=== PATIENT | female | born 1980 | race Caucasian/White ===

== ENCOUNTER 2021-02-22 11:17 | Emergency (ER) | payer OTHER, SELFPAY ==
[2021-02-22 11:32] VITALS: BP 156/79; PULSE 70; RESP 18; TEMP 36.3; O2SAT 100; BMI 36.3
--- NOTE | 2021-02-22 11:42 | XR_ITS ---
WS: [id number] Exam: XR KUB portable [id number] Date/Time of Exam: 02/22/2021 11:48 AM Reason For Exam: acute onset pain lower abd No bowel obstruction or free air. There are numerous opaque densities identified in the right and lef t upper abdomen that may be within the GI tract. This could be ingested medication or foreign materia l. Signs of prior cholecystectomy. No sign of organ enlargement. Regional bony elements appear normal . XR/XR KUB portable [id number] IMPRESSION: 1. No acute abdominal process identified. 2. Numerous opaque densities seen in the upper right and left abdomen that may be in the colon. This may represent ingested medication or foreign material.
--- NOTE | 2021-02-22 11:56 | W.ED.ABDPA2 ---
Documented by User: JEAN PAUL Kelly 02/22/21 15:01 HPI - Abdominal Pain General: Chief Complaint: Abdominal Pain Stated Complaint: abdomen pain Time Seen by Provider: 02/22/21 16:33 History of Present Illness: HPI narrative: Patient states that she has had acute onset abdominal pain that started this morning after going to the bathroom. Now pain is colicky. But down in her lower abdomen and denies any acute distress or significant health problems. FORMERLY [facility] ED PFSH: Surgical History (Updated 02/22/21 @ 17:24 by Srikanth Sneed DO) S/P appendectomy S/P cholecystectomy Social History (Updated 02/22/21 @ 17:24 by Srikanth Sneed DO) Alcohol intake: never Course Vital Signs: Vital signs: Vital Signs Temperature 97.4 F L 02/22/21 11:32 Pulse Rate 90 02/22/21 19:56 Respiratory Rate 18 02/22/21 19:56 Blood Pressure 131/97 02/22/21 19:56 Pulse Oximetry 97 02/22/21 19:56 MDM - Abdominal Pain MDM Narrative: Medical decision making narrative: Brief history and physical exam was performed as part of the triage process. Due to current ED wait time patient will be placed in waiting room until a room becomes available. Explained to patient he/she will be seen in order of severity. Patient is currently safe to wait in the waiting room until we can get them placed. Patient informed that if condition worsens at any time to please let the front end developer javascript html css know. Recheck patient at 1300. Patient no acute distress recheck patient 1400. Patient no acute distress has pain across abdomen. Recheck patient 1500 patient still with abdominal pain waiting for CT to be performed Lab Data: Labs: Lab Results 02/22/21 02/22/21 02/22/21 13:15 13:15 13:15 WBC 8.9 10^3/uL 10^3/ uL (4.0-10.0) RBC 4.76 10^6/uL 10^6 /uL (4.1-5.3) Hgb 13.9 g/dL g/dL (11.5-15.3) Hct 42.5 % % (37.0-47.0) MCV 89.3 fl fl (81-99) MCH 29.2 pg pg (28.0-34.0) MCHC 32.7 g/dL g/dL (30.0-36.0) RDW 12.5 % % (12.1-15.1) Plt Count 343 10^3/cmm 10^3 /cmm (130-400) MPV 9.3 fL fL (7.4-10.4) Neut % (Auto) 74.0 % % Lymph % (Auto) 15.7 % % [place] % (Auto) 8.3 % % Eos % (Auto) 1.0 % % Baso % (Auto) 0.5 % % Neut # (Auto) 6.58 10^3/uL 10^3 /uL (1.8-7.7) Lymph # (Auto) 1.4 10^3/uL 10^3/ uL (0.8-4.8) [place] # (Auto) 0.7 10^3/uL 10^3/ uL (0.2-0.9) Eos # (Auto) 0.1 10^3/uL 10^3/ uL (0.0-0.8) Baso # (Auto) 0.0 10^3/uL 10^3/ uL (0.0-0.1) Nucleated RBC % (a uto) 0 % % Nucleated RBCs # 0.0 /100WBC /100W BC Sodium 137 mmol/L mmol/L (136-145) Potassium 4.0 mmol/L mmol/L (3.5-5.1) Chloride 104 mmol/L mmol/L (98-107) Carbon Dioxide 18 mmol/L L mmol/ L (22-29) Anion Gap 19.0 (5-19) BUN 11 mg/dL mg/dL (6-20) Creatinine 0.9 mg/dL mg/dL (0.5-0.9) GFR Calculation 68.7 mL/min L mL/ min (90-130) Glucose 84 mg/dL mg/dL (65-115) Calculated Osmolal ity 283 mOsm/kg L mOs m/kg (285-295) Calcium 8.8 mg/dL mg/dL (8.5-10.5) Total Bilirubin 0.6 mg/dL mg/dL (0.15-1.2) AST 22 U/L U/L (0-32) ALT 19 U/L U/L (0-33) Alkaline Phosphata se 88 IU/L IU/L (35-105) Creatine Kinase 86 U/L U/L (26-192) Total Protein 7.5 g/dL g/dL (6.6-8.7) Albumin 4.5 g/dL g/dL (3.5-5.2) Globulin 3.0 g/dL g/dL (1.3-4.6) Lipase 84 U/L H U/L (13-60) Urine Color Urine Appearance Urine pH Ur Specific Gravit y Urine Protein Urine Glucose (UA) Urine Ketones Urine Blood Urine Nitrate Urine Bilirubin Urine Urobilinogen Ur Leukocyte Tiffanie ase Urine RBC Urine WBC Ur Squamous Epith Cells Amorphous Sediment Urine Bacteria 02/22/21 17:15 WBC RBC Hgb Hct MCV MCH MCHC RDW Plt Count MPV Neut % (Auto) Lymph % (Auto) [place] % (Auto) Eos % (Auto) Baso % (Auto) Neut # (Auto) Lymph # (Auto) [place] # (Auto) Eos # (Auto) Baso # (Auto) Nucleated RBC % (a uto) Nucleated RBCs # Sodium Potassium Chloride Carbon Dioxide Anion Gap BUN Creatinine GFR Calculation Glucose Calculated Osmolal ity Calcium Total Bilirubin AST ALT Alkaline Phosphata se Creatine Kinase Total Protein Albumin Globulin Lipase Urine Color Yellow (Yellow) Urine Appearance Clear (CLEAR) Urine pH 5 (5-7) Ur Specific Gravit y 1.020 (1.005-1.030) Urine Protein Neg (Negative) Urine Glucose (UA) Norm (Normal) Urine Ketones Negative (Negative) Urine Blood Neg (Negative) Urine Nitrate Positive H (Negative) Urine Bilirubin Neg (Negative) Urine Urobilinogen Norm mg/dL mg/dL (Negative) Ur Leukocyte Tiffanie ase Negative (Negative) Urine RBC 0-4 /hpf H /hpf (0-2) Urine WBC 5-10 /hpf H /hpf (0-5) Ur Squamous Epith Cells 0-4 /hpf H /hpf (0-5) Amorphous Sediment Not Reportable Urine Bacteria 4+ /hpf H /hpf (NONE) Discharge Plan Discharge Patient Disposition: Home Clinical Impression: Acute cystitis, Adnexal cyst Condition: Stable Prescriptions: New hydrocodone-acetaminophen 5-325 mg tablet 1 tab PO Q6H PRN (Reason: pain) Qty: 14 RF: 0 cephalexin 500 mg capsule 500 mg PO TID 7 Days Qty: 21 RF: 0 Discharge Orders: Discharge ED (Routine); Ordered 02/22/21 Ordered By: Mirian Davidson Referrals: Hernán Bah DO [Primary Care Provider] - Discharge Diet: Advance as tolerated Discharge Activity: Resume usual activity Patient Instructions: Ovarian Cyst (ED), Urinary Tract Infection in Women (DC), Opioid Safety Coding Level of Care Code ED Label Fuser Tender for Chg Fwd Exam Comprehensive Documented by User: Srikanth Sneed DO 02/23/21 05:36 HPI - Abdominal Pain General: Chief Complaint: Abdominal Pain Stated Complaint: abdomen pain Time Seen by Provider: 02/22/21 16:33 History of Present Illness: HPI narrative: 40-year-old female presents emergency room complaining of lower abdominal pain. She states this morning she got up to go to the bathroom she was trying to have a bowel movement, doubled over laying down to her knees and felt sudden pain felt like something what she describes as flipping in her stomach she got nauseous. She sat upright it seemed to improve persisted throughout the day. She still has a tender abdomen refers all the pain in the lower quadrants. She denies any vomiting or diarrhea. She denies any medic easy melena hematemesis or coffee-ground emesis. She denies any dysuria urgency or frequency. She has previously had a cholecystectomy and appendectomy. MD elicited complaint: abdominal pain Pertinent past history: none Onset (ago): hour(s) Pain Consistency: constant Location: None Severity: moderate Associated Symptoms: Denies bloating, chills, coffee ground emesis, constipation, diarrhea, dysuria, fever(s), hematochezia, hematemesis, melena, nausea and vomiting Review of Systems Const: Denies: fever(s), chills, body aches, change in appetite, fatigue or malaise ENMT: Denies: throat pain, ear or mastoid pain, nasal discharge or nasal congestion Card: Denies: chest pain, edema, dyspnea on exertion or orthopnea Resp: Denies: dyspnea, productive cough or non-productive cough GI: Denies: abdominal pain, nausea, vomiting, hematemesis, coffee ground emesis, diarrhea, constipation, bloating, hematochezia or melena : Denies: flank pain, difficulty voiding, dysuria, urinary frequency or urinary urgency Skin/Breast: Denies: rash or pruritus PFSH ED PFSH: Surgical History (Updated 02/22/21 @ 17:24 by Srikanth Sneed DO) S/P appendectomy S/P cholecystectomy Social History (Updated 02/22/21 @ 17:24 by Srikanth Sneed DO) Alcohol intake: never Physical Exam Const: COMMON NORMALS: no acute distress GENERAL APPEARANCE: cooperative and comfortable ORIENTATION/CONSCIOUSNESS: Yes awake, Yes oriented to person, Yes oriented to place and Yes oriented to time HENMT: COMMON NORMALS: normocephalic, atraumatic and hearing grossly normal bilaterally HEAD & SCALP: normocephalic and atraumatic Neck/C-Spine: COMMON NORMALS: no JVD Resp: COMMON NORMALS: normal respiratory effort, No retractions, No use of accessory muscles and clear to auscultation bilaterally AUSCULTATION: clear to auscultation bilaterally Cardio: COMMON NORMALS: no JVD, regular rate, regular rhythm and No murmurs present (Cardio) RATE: regular rate RHYTHM: regular rhythm GI: COMMON NORMALS: No hepatosplenomegaly present AUSCULTATION: Yes normoactive bowel sounds PALPATION: Yes Tenderness to palpation present (GI) (Suprapubic tenderness), No Guarding due to palpation present (GI) and Yes No hepatosplenomegaly present Extremity: COMMON NORMALS: normal to inspection, capillary refill normal, no clubbing, cyanosis or edema, no calf tenderness and no pedal edema Neuro: SENSORIUM/ORIENTATION: Yes oriented to person, Yes oriented to place and Yes oriented to time Skin: COMMON NORMALS: no rashes or lesions noted GENERAL SKIN EXAM: no rashes or lesions noted Course Vital Signs: Vital signs: Vital Signs Temperature 97.4 F L 02/22/21 11:32 Pulse Rate 90 02/22/21 19:56 Respiratory Rate 18 02/22/21 19:56 Blood Pressure 131/97 02/22/21 19:56 Pulse Oximetry 97 02/22/21 19:56 MDM - Abdominal Pain MDM Narrative: Medical decision making narrative: Care turned over to Dr. Davidson at change shift see his notes for final diagnosis and disposition Lab Data: Labs: Lab Results 02/22/21 02/22/21 02/22/21 13:15 13:15 13:15 WBC 8.9 10^3/uL 10^3/ uL (4.0-10.0) RBC 4.76 10^6/uL 10^6 /uL (4.1-5.3) Hgb 13.9 g/dL g/dL (11.5-15.3) Hct 42.5 % % (37.0-47.0) MCV 89.3 fl fl (81-99) MCH 29.2 pg pg (28.0-34.0) MCHC 32.7 g/dL g/dL (30.0-36.0) RDW 12.5 % % (12.1-15.1) Plt Count 343 10^3/cmm 10^3 /cmm (130-400) MPV 9.3 fL fL (7.4-10.4) Neut % (Auto) 74.0 % % Lymph % (Auto) 15.7 % % [place] % (Auto) 8.3 % % Eos % (Auto) 1.0 % % Baso % (Auto) 0.5 % % Neut # (Auto) 6.58 10^3/uL 10^3 /uL (1.8-7.7) Lymph # (Auto) 1.4 10^3/uL 10^3/ uL (0.8-4.8) [place] # (Auto) 0.7 10^3/uL 10^3/ uL (0.2-0.9) Eos # (Auto) 0.1 10^3/uL 10^3/ uL (0.0-0.8) Baso # (Auto) 0.0 10^3/uL 10^3/ uL (0.0-0.1) Nucleated RBC % (a uto) 0 % % Nucleated RBCs # 0.0 /100WBC /100W BC Sodium 137 mmol/L mmol/L (136-145) Potassium 4.0 mmol/L mmol/L (3.5-5.1) Chloride 104 mmol/L mmol/L (98-107) Carbon Dioxide 18 mmol/L L mmol/ L (22-29) Anion Gap 19.0 (5-19) BUN 11 mg/dL mg/dL (6-20) Creatinine 0.9 mg/dL mg/dL (0.5-0.9) GFR Calculation 68.7 mL/min L mL/ min (90-130) Glucose 84 mg/dL mg/dL (65-115) Calculated Osmolal ity 283 mOsm/kg L mOs m/kg (285-295) Calcium 8.8 mg/dL mg/dL (8.5-10.5) Total Bilirubin 0.6 mg/dL mg/dL (0.15-1.2) AST 22 U/L U/L (0-32) ALT 19 U/L U/L (0-33) Alkaline Phosphata se 88 IU/L IU/L (35-105) Creatine Kinase 86 U/L U/L (26-192) Total Protein 7.5 g/dL g/dL (6.6-8.7) Albumin 4.5 g/dL g/dL (3.5-5.2) Globulin 3.0 g/dL g/dL (1.3-4.6) Lipase 84 U/L H U/L (13-60) Urine Color Urine Appearance Urine pH Ur Specific Gravit y Urine Protein Urine Glucose (UA) Urine Ketones Urine Blood Urine Nitrate Urine Bilirubin Urine Urobilinogen Ur Leukocyte Tiffanie ase Urine RBC Urine WBC Ur Squamous Epith Cells Amorphous Sediment Urine Bacteria 02/22/21 17:15 WBC RBC Hgb Hct MCV MCH MCHC RDW Plt Count MPV Neut % (Auto) Lymph % (Auto) [place] % (Auto) Eos % (Auto) Baso % (Auto) Neut # (Auto) Lymph # (Auto) [place] # (Auto) Eos # (Auto) Baso # (Auto) Nucleated RBC % (a uto) Nucleated RBCs # Sodium Potassium Chloride Carbon Dioxide Anion Gap BUN Creatinine GFR Calculation Glucose Calculated Osmolal ity Calcium Total Bilirubin AST ALT Alkaline Phosphata se Creatine Kinase Total Protein Albumin Globulin Lipase Urine Color Yellow (Yellow) Urine Appearance Clear (CLEAR) Urine pH 5 (5-7) Ur Specific Gravit y 1.020 (1.005-1.030) Urine Protein Neg (Negative) Urine Glucose (UA) Norm (Normal) Urine Ketones Negative (Negative) Urine Blood Neg (Negative) Urine Nitrate Positive H (Negative) Urine Bilirubin Neg (Negative) Urine Urobilinogen Norm mg/dL mg/dL (Negative) Ur Leukocyte Tiffanie ase Negative (Negative) Urine RBC 0-4 /hpf H /hpf (0-2) Urine WBC 5-10 /hpf H /hpf (0-5) Ur Squamous Epith Cells 0-4 /hpf H /hpf (0-5) Amorphous Sediment Not Reportable Urine Bacteria 4+ /hpf H /hpf (NONE) Discharge Plan Discharge Patient Disposition: Home Clinical Impression: Acute cystitis, Adnexal cyst Condition: Stable Prescriptions: New hydrocodone-acetaminophen 5-325 mg tablet 1 tab PO Q6H PRN (Reason: pain) Qty: 14 RF: 0 cephalexin 500 mg capsule 500 mg PO TID 7 Days Qty: 21 RF: 0 Discharge Orders: Discharge ED (Routine); Ordered 02/22/21 Ordered By: Mirian Davidson Referrals: Hernán Bah DO [Primary Care Provider] - Discharge Diet: Advance as tolerated Discharge Activity: Resume usual activity Patient Instructions: Ovarian Cyst (ED), Urinary Tract Infection in Women (DC), Opioid Safety Coding Level of Care Code ED Label Fuser Tender for Chg Fwd Exam Comprehensive Documented by User: Mirian Davidson MD 02/22/21 19:56 HPI - Abdominal Pain General: Chief Complaint: Abdominal Pain Stated Complaint: abdomen pain Time Seen by Provider: 02/22/21 16:33 PFSH ED PFSH: Surgical History (Updated 02/22/21 @ 17:24 by Srikanth Sneed DO) S/P appendectomy S/P cholecystectomy Social History (Updated 02/22/21 @ 17:24 by Srikanth Sneed DO) Alcohol intake: never Course Vital Signs: Vital signs: Vital Signs Temperature 97.4 F L 02/22/21 11:32 Pulse Rate 90 02/22/21 19:56 Respiratory Rate 18 02/22/21 19:56 Blood Pressure 131/97 02/22/21 19:56 Pulse Oximetry 97 02/22/21 19:56 MDM - Abdominal Pain MDM Narrative: Medical decision making narrative: Patient presents here with abdominal pain she does have a cystic lesion in her right adnexa I discussed this with her we will get her follow-up with OB will need an outpatient ultrasound as well patient also has a urinary tract infection we will give her Keflex she has no signs of torsion. She is return if worsening she understands agrees to plan. Lab Data: Labs: Lab Results 02/22/21 02/22/21 02/22/21 13:15 13:15 13:15 WBC 8.9 10^3/uL 10^3/ uL (4.0-10.0) RBC 4.76 10^6/uL 10^6 /uL (4.1-5.3) Hgb 13.9 g/dL g/dL (11.5-15.3) Hct 42.5 % % (37.0-47.0) MCV 89.3 fl fl (81-99) MCH 29.2 pg pg (28.0-34.0) MCHC 32.7 g/dL g/dL (30.0-36.0) RDW 12.5 % % (12.1-15.1) Plt Count 343 10^3/cmm 10^3 /cmm (130-400) MPV 9.3 fL fL (7.4-10.4) Neut % (Auto) 74.0 % % Lymph % (Auto) 15.7 % % [place] % (Auto) 8.3 % % Eos % (Auto) 1.0 % % Baso % (Auto) 0.5 % % Neut # (Auto) 6.58 10^3/uL 10^3 /uL (1.8-7.7) Lymph # (Auto) 1.4 10^3/uL 10^3/ uL (0.8-4.8) [place] # (Auto) 0.7 10^3/uL 10^3/ uL (0.2-0.9) Eos # (Auto) 0.1 10^3/uL 10^3/ uL (0.0-0.8) Baso # (Auto) 0.0 10^3/uL 10^3/ uL (0.0-0.1) Nucleated RBC % (a uto) 0 % % Nucleated RBCs # 0.0 /100WBC /100W BC Sodium 137 mmol/L mmol/L (136-145) Potassium 4.0 mmol/L mmol/L (3.5-5.1) Chloride 104 mmol/L mmol/L (98-107) Carbon Dioxide 18 mmol/L L mmol/ L (22-29) Anion Gap 19.0 (5-19) BUN 11 mg/dL mg/dL (6-20) Creatinine 0.9 mg/dL mg/dL (0.5-0.9) GFR Calculation 68.7 mL/min L mL/ min (90-130) Glucose 84 mg/dL mg/dL (65-115) Calculated Osmolal ity 283 mOsm/kg L mOs m/kg (285-295) Calcium 8.8 mg/dL mg/dL (8.5-10.5) Total Bilirubin 0.6 mg/dL mg/dL (0.15-1.2) AST 22 U/L U/L (0-32) ALT 19 U/L U/L (0-33) Alkaline Phosphata se 88 IU/L IU/L (35-105) Creatine Kinase 86 U/L U/L (26-192) Total Protein 7.5 g/dL g/dL (6.6-8.7) Albumin 4.5 g/dL g/dL (3.5-5.2) Globulin 3.0 g/dL g/dL (1.3-4.6) Lipase 84 U/L H U/L (13-60) Urine Color Urine Appearance Urine pH Ur Specific Gravit y Urine Protein Urine Glucose (UA) Urine Ketones Urine Blood Urine Nitrate Urine Bilirubin Urine Urobilinogen Ur Leukocyte Tiffanie ase Urine RBC Urine WBC Ur Squamous Epith Cells Amorphous Sediment Urine Bacteria 02/22/21 17:15 WBC RBC Hgb Hct MCV MCH MCHC RDW Plt Count MPV Neut % (Auto) Lymph % (Auto) [place] % (Auto) Eos % (Auto) Baso % (Auto) Neut # (Auto) Lymph # (Auto) [place] # (Auto) Eos # (Auto) Baso # (Auto) Nucleated RBC % (a uto) Nucleated RBCs # Sodium Potassium Chloride Carbon Dioxide Anion Gap BUN Creatinine GFR Calculation Glucose Calculated Osmolal ity Calcium Total Bilirubin AST ALT Alkaline Phosphata se Creatine Kinase Total Protein Albumin Globulin Lipase Urine Color Yellow (Yellow) Urine Appearance Clear (CLEAR) Urine pH 5 (5-7) Ur Specific Gravit y 1.020 (1.005-1.030) Urine Protein Neg (Negative) Urine Glucose (UA) Norm (Normal) Urine Ketones Negative (Negative) Urine Blood Neg (Negative) Urine Nitrate Positive H (Negative) Urine Bilirubin Neg (Negative) Urine Urobilinogen Norm mg/dL mg/dL (Negative) Ur Leukocyte Tiffanie ase Negative (Negative) Urine RBC 0-4 /hpf H /hpf (0-2) Urine WBC 5-10 /hpf H /hpf (0-5) Ur Squamous Epith Cells 0-4 /hpf H /hpf (0-5) Amorphous Sediment Not Reportable Urine Bacteria 4+ /hpf H /hpf (NONE) Discharge Plan Discharge Patient Disposition: Home Clinical Impression: Acute cystitis, Adnexal cyst Condition: Stable Prescriptions: New hydrocodone-acetaminophen 5-325 mg tablet 1 tab PO Q6H PRN (Reason: pain) Qty: 14 RF: 0 cephalexin 500 mg capsule 500 mg PO TID 7 Days Qty: 21 RF: 0 Discharge Orders: Discharge ED (Routine); Ordered 02/22/21 Ordered By: Mirian Davidson Referrals: Hernán Bah DO [Primary Care Provider] - Discharge Diet: Advance as tolerated Discharge Activity: Resume usual activity Patient Instructions: Ovarian Cyst (ED), Urinary Tract Infection in Women (DC), Opioid Safety Coding Level of Care Code ED Label Fuser Tender for Chg Fwd Exam Comprehensive
[2021-02-22 13:22] LABS: Basophils % 0.5 %; Eosinophils # 0.1 10^3/uL (0.0-0.8); Hematocrit 42.5 % (37.0-47.0); Hemoglobin 13.9 g/dL (11.5-15.3); Lymphocytes # 1.4 10^3/uL (0.8-4.8); Lymphocytes % 15.7 %; Mean Corpuscular HGB Conc 32.7 g/dL (30.0-36.0); Mean Corpuscular Hemoglobin 29.2 pg (28.0-34.0); Mean Corpuscular Volume 89.3 fl (81-99); Mean Platelet Volume 9.3 fL (7.4-10.4); Monocytes # 0.7 10^3/uL (0.2-0.9); Monocytes % 8.3 %; Neutrophils # 6.58 10^3/uL (1.8-7.7); Nucleated Red Blood Cells % 0 %; Platelet Count 343 10^3/cmm (130-400); Red Blood Count 4.76 10^6/uL (4.1-5.3); Red Cell Distribution Width 12.5 % (12.1-15.1); White Blood Count 8.9 10^3/uL (4.0-10.0)
[2021-02-22 13:43] LABS: Alanine Aminotransferase 19 U/L (0-33); Albumin Level 4.5 g/dL (3.5-5.2); Alkaline Phosphatase 88 IU/L (35-105); Aspartate Amino Transferase 22 U/L (0-32); Blood Urea Nitrogen 11 mg/dL (6-20); Calcium 8.8 mg/dL (8.5-10.5); Carbon Dioxide 18 mmol/L (22-29); Chloride 104 mmol/L (98-107); Glomerular Filtration Rate 68.7 mL/min (90-130); Glucose 84 mg/dL (65-115); Lipase 84 U/L (13-60); Osmolality Calculated 283 mOsm/kg (285-295); Sodium 137 mmol/L (136-145); Total Bilirubin 0.6 mg/dL (0.15-1.2); Total Protein 7.5 g/dL (6.6-8.7)
--- NOTE | 2021-02-22 13:46 | CTR_ITS ---
PROCEDURE INFORMATION: Exam: CT Abdomen And Pelvis With Contrast Exam date and time: 02/22/2021 1:46 PM Age: 40 years old Clinical indication: Abdominal pain; Prior surgery; Surgery type: Appy, gb; Additional info: Abd pain, increased lipase TECHNIQUE: Imaging protocol: Computed tomography of the abdomen and pelvis with contrast. Radiation optimization: All CT scans at this facility use at least one of these dose optimization techniques: automated exposure control; mA and/or kV adjustment per patient size (includes targeted exams where dose is matched to clinical indication); or iterative reconstruction. Contrast material: OMNI 300; Contrast volume: 95 ml; Contrast route: INTRAVENOUS (IV); COMPARISON: CR XR KUB portable [id number] 02/22/2021 11:54 AM RADIATION DOSE METRICS: Total DLP (mGy-cm): 1781.83 FINDINGS: Liver: There is an indeterminate 9 or 10 mm hypodensity in the left lobe of the liver. This appears to have a slight amount of peripheral enhancement and may represent small benign hemangioma. No further follow-up is necessary. Gallbladder and bile ducts: There has been a cholecystectomy. Pancreas: The pancreas is normal. Spleen: The spleen is normal. Adrenal glands: The adrenal glands are normal. Kidneys and ureters: The kidneys are normal. There is no evidence of hydronephrosis. There is no evidence of renal or ureteral calcifications. Stomach and bowel: There is no evidence of colitis/diverticulitis. There is no evidence of intestinal obstruction. Appendix: Not identified. By history the patient has had prior appendectomy. Intraperitoneal space: There is a small amount of free intraperitoneal fluid present. Vasculature: The aorta is normal. Lymph nodes: There is no evidence of lymphadenopathy. Urinary bladder: Unremarkable as visualized. Reproductive: There is a 48 x 23 x 31 mm sized fluid collection in the right adnexal region which could represent ovarian cyst versus hydrosalpinx. There is a calcific density to the right of this fluid collection. Correlation with clinical findings is suggested. Further evaluation with pelvic ultrasound may be helpful. Bones/joints: Unremarkable. No acute fracture. Soft tissues: Unremarkable. CT/CT abdomen pelvis w con* [id number] IMPRESSION: Cystic lesion right adnexal region, further evaluation with ultrasound suggested.
[2021-02-22 17:42] LABS: Creatine Phosphokinase 86 U/L (26-192)
[2021-02-22 18:11] VITALS: BP 129/95; PULSE 72; O2SAT 96
[2021-02-22 18:23] LABS: Add Urine Culture? Yes; Add Urine Microscopic? YES; Bacteria Urine 4+ /hpf; Bilirubin Urine Neg (Negative); Blood Urine Neg (Negative); Glucose Urine UA Norm (Normal); Ketones Urine Negative (Negative); Leukocyte Esterase Urine Negative (Negative); Nitrate Urine Positive (Negative); Protein Urine Neg (Negative); RBC Urine 0-4 /hpf (0-2); Squamous Epithelial Cell Urine 0-4 /hpf (0-5); Urine Appearance Clear (CLEAR); Urine Color Yellow (Yellow); Urobilinogen Urine Norm (Negative); pH Urine 5 (5-7)
[2021-02-22] MEDS: iohexol 300 mg/mL 100 mL Btl IV (18:34)
[2021-02-22] MEDS: cefTRIAXone 1,000 MG in sodium chloride 0.9% (plus) 50 ML 100 MG IV (18:50)
[2021-02-22 19:56] VITALS: BP 131/97; PULSE 90; RESP 18; O2SAT 97
--- NOTE | 2021-02-23 16:28 | DCPLANNER ---
Addendum entered by Julianna Bahena 04/29/21 11:34: Patient had a follow up appointment scheduled for [facility] - patient did attend appointment. Addendum entered by Julianna Bahena 03/18/21 08:11: Patient has a follow up appointment scheduled for Thursday, April 01, 2021 at 8:[address] Hobbs at [facility]. Clinic will call patient with appointment information. Original Note: tax manager cpa had message to schedule a follow up appointment with [facility]. tax manager cpa called the [facility], spoke with Angel, gave clinic patients information. tax manager cpa was told that patients information would be printed and reviewed. Clinic will call patient with appointment information.
== END 2021-02-22 19:57 | disposition home or self-care (01) ==
PROVIDERS: Family Medicine; Nurse Practitioner Family; Emergency Provider Emergency Medicine; PCP Family Medicine
DX: N30.00 Acute cystitis without hematuria (principal); N83.201 Unspecified ovarian cyst, right side
CPT/HCPCS: 74018; 74177; 80053; 81001; 82550; 83690; 85025; 87077; 87086; 87186; 96365; 99284; J0696; Q9967

== ENCOUNTER 2021-05-06 06:57 | Outpatient (CLI) | payer OTHER, SELFPAY ==
--- NOTE | 2021-05-06 07:15 | US_ITS ---
WS: [id number] TRANSABDOMINAL PELVIC AND TRANSVAGINAL PELVIC ULTRASOUND HISTORY: N94.89 - Other specified conditions associated with female... COMPARISON: 02/22/2021 CT. Uterus: 9.7 cm x 5.9 cm x 4.4 cm. Uterus is enlarged and anteverted. Only mild enlargement. No fibroi d or mass. Endometrium: 1.3 cm. Minimally heterogeneous endometrium. No increased vascularity or mass identified . Right ovary: 3.8 cm x 3.9 cm x 2.4 cm. RIGHT ovary is abnormal. There is solid and cystic components associated with the RIGHT ovary. There is a curvilinear calcification with adjacent soft tissue thick ening and nodularity and increased vascularity. There is a complex lobulated nodule associated with t he ovary measuring 2.3 x 1.8 cm. There are a few septations present with increased vascularity. Left ovary: 2.8 cm x 2.5 cm x 2.0 cm. Normal size and echogenicity. No significant free fluid identified. US/US pelvic with transvaginal IMPRESSION: 1. Abnormal RIGHT ovary. There are a few small cystic components, curvilinear calcification and solid nodules within the ovary. Although the ovary is not sig nificantly enlarged these changes need to be further evaluated either with shor t-term transvaginal ultrasound follow-up or direct visualization. Findings are moderately suspicious but not diagnostic for early ovarian neoplasm. 2. No ascites. 3. Normal endometrium.
== END 2021-05-06 06:58 | disposition home or self-care (01) ==
LOC: RAD 06:59
PROVIDERS: PCP Family Medicine; Visit Provider Obstetrics & Gynecology
DX: N94.89 Other specified conditions associated with female genital organs and menstrual cycle (principal)
CPT/HCPCS: 76830; 76856

== ENCOUNTER 2021-05-11 07:14 | Outpatient (CLI) | payer OTHER, SELFPAY ==
--- NOTE | 2021-05-11 07:20 | MM_ITS ---
WS: [id number] BILATERAL 3D TOMOSYNTHESIS DIGITAL SCREENING MAMMOGRAPHY WITH CAD CLINICAL INFORMATION: SCREENING HISTORY: Screening mammogram. No current complaints. COMPARISON: None. TECHNIQUE: Bilateral CC and MLO views. FINDINGS: Bilateral saline breast implants. Breast implants appear Mammographically intact. Scattered fibroglandular densities bilaterally. Punctate and lucent centered calcifications. No suspi cious focal mass, asymmetry, calcifications, or architectural distortion. No evidence of malignancy. MM/[place] [id number] IMPRESSION: BI-RADS: 2-Benign FOLLOW UP: 1 Year Follow-up Recommend return to annual screening mammography.
== END 2021-05-11 07:15 | disposition home or self-care (01) ==
LOC: RAD 07:17
PROVIDERS: PCP Family Medicine; Visit Provider Family Medicine
DX: Z12.31 Encounter for screening mammogram for malignant neoplasm of breast (principal)
CPT/HCPCS: 77063; 77067; 81500

== ENCOUNTER 2021-06-14 12:32 | Observation (INO) | payer OTHER, SELFPAY ==
[2021-06-13 12:23] VITALS: BMI 34.5
[2021-06-14] VITALS (19 sets, daily range): BP systolic 97–130; BP diastolic 61–90; PULSE 63–111; RESP 14–80; TEMP 35.9–36.9; O2SAT 97–100
[2021-06-14 06:09] LABS: OR HCG Qualitative Urine Negative (Negative)
--- NOTE | 2021-06-14 06:53 | ANES.PREANE2 ---
Pre-Anesthetic Assessment Height/Weight: Height 1.6 m Weight 88.451 kg Temp Pulse Resp BP Pulse Ox 97.8 F 99 18 129/90 100 06/14/21 06:13 06/14/21 06:13 06/14/21 06:13 06/14/21 06:13 06/14/21 06:13 Preop Diagnosis: Desired sterilarization Operation Date: 06/14/21 07:00 Proposed Procedures p [facility] [id number](Not Applicable) - Alia Murillo MD s Laparoscopic Oophorectomy(Right) - Alia Murillo MD s Laparoscopic Salpingectomy(Left) - Alia Murillo MD Familial anesthetic complications: None Was Beta Miryam taken within 24 hours: N/A Was Clonidine taken within 24 hours: N/A Last intake: Intake Last Liquid Date 06/13/21 Last Liquid Time 22:30 Last Solid Date 06/13/21 Last Solid Time 19:30 Social No alcohol and No tobacco Exam alert, oriented x 3, clear to auscultation bilaterally and regular rate & rhythm Airway Submandibular: within normal limits Cervical ROM: within normal limits Mallampati: Class I Dentition: full History/ROS No significant complaints Pulmonary None reported CV/HEM None reported METS > 4 Uterine prolapse Adenexal mass Hepatic None reported GI Gastroesophageal Reflux Disease (Well controlled ) Metabolic None reported Musc/skel None reported Neuropsych None reported Anesthetic Plan ASA status: 2 Anesthesia: Anesthesia Evaluation and General Other: We discussed risk and benefits of general anesthesia including PONV, sore throat (sometimes severe), corneal abrasion, positioning and peripheral nerve injuries, life threatening allergic reaction, post operative ICU admission requiring prolonged intubation, stroke, heart attack, , and rare incidences of recall. Patient consents to proceed with general anesthesia. Risk of > 500 ml blood loss (7ml/kg in children): No Medications/Allergies Home Medications Medication Instructions Recorded Confirmed Last Taken Type cetirizine 10 mg capsule (Zyrtec) 10 mg PO DAILY PRN 04/14/21 06/13/21 06/13/21 07:00 History diphenhydramine HCl 25 mg capsule 25 mg PO .h.s PRN cap 04/14/21 06/13/21 06/12/21 20:00 History (Benadryl) omeprazole 20 mg capsule,delayed 20 mg PO DAILY 04/14/21 06/13/21 06/14/21 History release Allergies Allergy/AdvReac Type Severity Reaction Status Date / Time No Known Allergies Allergy Verified 05/12/21 09:09 [facility] Anesthesia Medical History GERD (gastroesophageal reflux disease) Surgical History History of breast augmentation History of elbow surgery x3 to replace the radial head S/P appendectomy S/P cholecystectomy Family History Grandmother Cancer Maternal-leukemia Grandfather Cancer Maternal-leukemia Father Diabetes Mother Hypertension Thyroid disease Denies family history of CAD (coronary artery disease) Clotting disorder Hyperlipidemia Chronic kidney disease (CKD) Bleeding disorder Stroke Female Reproductive History Date of last menstrual period: 05/20/21 Data Anesthesia Cardiac Studies: No Data to Display
[2021-06-14] MEDS: phenazopyridine 100 mg Tablet 200 MG PO (06:57)
[2021-06-14] MEDS: sodium chloride 0.9% 1,000 ML 30 ML IV (06:57)
--- NOTE | 2021-06-14 07:03 | W.PM.OPSUD ---
Surgery/Procedure H&P Update DATE OF PROCEDURE: June 14, 2021 DATE H&P PERFORMED: 06/09/21 H&P UPDATE INFORMATION: I have reviewed H&P completed within last 30 days, I have examined patient prior to procedure and No changes to prior documentation PREOP DIAGNOSIS: Desired sterilarization PLANNED PROCEDURE: Operation Date: 06/14/21 07:00 Proposed Procedures p [facility] [id number](Not Applicable) - Alia Murillo MD s Laparoscopic Oophorectomy(Right) - Alia Murillo MD s Laparoscopic Salpingectomy(Left) - Alia Murillo MD
[2021-06-14 07:11] LABS: Basophils % 0.9 %; Eosinophils # 0.1 10^3/uL (0.0-0.8); Eosinophils % 2.3 %; Hematocrit 38.3 % (37.0-47.0); Hemoglobin 13.1 g/dL (11.5-15.3); Lymphocytes # 1.2 10^3/uL (0.8-4.8); Lymphocytes % 28.3 %; Mean Corpuscular HGB Conc 34.2 g/dL (30.0-36.0); Mean Corpuscular Hemoglobin 30.1 pg (28.0-34.0); Mean Platelet Volume 9.5 fL (7.4-10.4); Monocytes # 0.6 10^3/uL (0.2-0.9); Monocytes % 13.3 %; Neutrophils # 2.34 10^3/uL (1.8-7.7); Neutrophils % 54.7 %; Nucleated Red Blood Cells % 0 %; Platelet Count 290 10^3/cmm (130-400); Red Blood Count 4.35 10^6/uL (4.1-5.3); White Blood Count 4.3 10^3/uL (4.0-10.0)
[2021-06-14] MEDS: acetaminophen 1,000 MG/100 ML PIGGYBACK 400 MG IV (07:22)
[2021-06-14 07:34] LABS: Blood Urea Nitrogen 11 mg/dL (6-20); Calcium 9.4 mg/dL (8.5-10.5); Carbon Dioxide 21 mmol/L (22-29); Chloride 103 mmol/L (98-107); Glucose 95 mg/dL (65-115); Osmolality Calculated 281 mOsm/kg (285-295); Sodium 136 mmol/L (136-145)
--- NOTE | 2021-06-14 10:12 | SUR.OPER ---
Family Notified Of Patient's Status Via Phone.
[2021-06-14] MEDS: vasopressin 20 unit/mL INJ INJECTION (11:28)
--- NOTE | 2021-06-14 11:59 | P.OP_ITS ---
Operative Report Date of procedure: June 14, 2021 Pre-op diagnosis: Preop Diagnosis Uterine prolapse, loose perineal body, right adnexal mass Post-op diagnosis: uterine prolapse, loose perineal body, extensive right adnexal adhesions including bowel and omentum. Normal appearing tubes and ovaries Procedure done: LAVH, perineorrhaphy. bilateral salpingectomy, extensive lysis of adhesions Specimens removed/disposition: uterus, bilateral fallopian tubes to pathology Surgeon: Alia Murillo Anesthesia: General Estimated blood loss (mL): 500 IV fluids (mL): 2,000 Urine output (mL): 600 Complications: none. I had an intraoperative surgical consult to come and visualize the bowel and right adnexal structures to assure no complications Condition: stable Procedure: The patient was taken to the operating room where general anesthesia was administered and found to be adequate. She was prepped and draped in the normal sterile fashion in the dorsal lithotomy position [facility]. A Bautista catheter was placed. A weighted speculum was placed into the vagina and the anterior lip of the cervix was grasped with a single tooth tenaculum. The [employer] uterine manipulator was placed. The weighted speculum was removed. The gloves were changed and attention was turned to the abdomen. A 10 mm infraumbilical incision was made, using the cut-down method. A 10 mm port was placed into the abdomen the the ballon insufflated. The abdomen was insufflated. Two low, lateral 5 mm ports were placed on the left and right under direct visualization from the camera. There were extensive adhesions in the right adnexae. I began taking them down with sharp, blunt and cautery dissection. The right tube was grasped and elevated. Using the laparoscopic cautery, the tube was removed. She had a previous tubal ligation. The other segment of the tube was grasped and removed, as well. The ovary appeared to be in a complex under the right fallopian tube. The left adnexa was normal. The cauterey was used to ligate the mesosalpinx between the tube and ovary, all the way to the cornua. The left fallopian tube was removed. The uteroovarian ligaments as well as the round ligaments were ligated bilaterally. On the right, the cautery was performed up against the uterus to assure no damage was done to the structures in the mass of adhesions. Attention was then turned to the vaginal portion of the procedure. The weighted speculum was placed into the vagina. The zumi manipulator was removed. The single tooth tenaculum was removed and replaced with the paris's tenaculum. 10 mL of dilute Pitressin was injected at the vesicovaginal junction. A circumferential incision was made at the vesicovaginal junction and the vaginal mucosa reflected cephalad. It was at this time, that I had Dr. Simon come in and take a look laparo scopically to assure that no damage had been done to the bowel or any other structures, with the taking down of the adhesions. He took down a few more adhesions and confirmed that the right ovary was visualized and normal. Please see his separate report. The posterior peritoneum was entered sharply with the Metzenbaum scissors and the long weighted speculum replaced. Using the Lidya clamps the uterosacral ligaments were clamped cut and suture-ligated. The anterior peritoneum was entered sharply with the metzenbaum scissors. Then, sequentially the uterine arteries and cardinal ligaments were clamped cut and suture-ligated. A single- tooth tenaculum was used to deliver the uterus. The remaining segement of the utero-ovarian ligaments were clamped cut and suture-ligated bilaterally and the specimen was removed. There was good hemostasis with only mild bleeding from the cuff. The peritoneum was closed with a pursestring using 2-0 Vicryl. The vaginal cuff was closed with 0 Vicryl in a running locked pattern incorporating the uterosacral ligaments into the lateral aspects of the vaginal cuff. The Bautista catheter was removed and the cystoscope advanced into the bladder. The patient was given pyridium and bilateral spill was noted. There were no injuries or deficits noted in the bladder. The cystoscope was removed and the Bautista was replaced. Attention was then turned to the perineorrhphy. Allis clamps were placed on the posterior fourchette. A 3 cm wedge of the fourchette was removed. This was repaired in the usual fashion with O-vicryl. Vaginal packing was placed. The abdominal incisions were repaired with 4-O vicryl and skin glue for the skin. The 10 mm incision had the fascia closed with O- vicryl prior to the skin closure. The patient tolerated the procedure well. Sponge, lap and needle counts were correct times three. She was taken to the recovery room in stable condition.
--- NOTE | 2021-06-14 12:23 | P.HPUD_ITS ---
Surgery/Procedure H&P Update DATE OF PROCEDURE: June 14, 2021 DATE H&P PERFORMED: 06/09/21 PREOP DIAGNOSIS: Desired sterilarization PLANNED PROCEDURE: Operation Date: 06/14/21 07:00 Proposed Procedures p [facility] [id number](Not Applicable) - Alia Murillo MD s Laparoscopic Oophorectomy(Right) - Alia Murillo MD s Laparoscopic Salpingectomy(Left) - Alia Murillo MD Related Problem List Diagnoses (1) Loss of perineal body, female: (2) Uterine prolapse: (3) Adnexal mass:
--- NOTE | 2021-06-14 12:28 | SUR.PHASEI ---
1212 Bilat SCDs on a pump and working
--- NOTE | 2021-06-14 13:15 | ANE.PACU2 ---
Inpatient post-anesthesia follow up: Airway intact: Yes Vital signs: Temperature 97.2 F Pulse Rate 72 Respiratory Rate 16 Blood Pressure 117/79 Pulse Oximetry 100 Oxygen Delivery Me thod Room Air Oxygen Flow Rate 6 Fraction of Inspir ed Oxygen Hydration adequate: Yes Nausea and vomiting: No Pain level: 3 Mental status: Baseline
[2021-06-14] MEDS: dextrose 5%-lactated ringers 1,000 ML 125 ML IV ×2 (13:42→22:00)
[2021-06-14] MEDS: HYDROmorphone 1 mg/mL INJ 1 mL 1.5 MG IVP ×2 (13:44→19:00)
[2021-06-14] MEDS: HYDROcodone-acetaminophen 5-325 mg Tablet PO ×2 (13:46→20:19)
[2021-06-14] MEDS: diphenhydrAMINE 50 mg/mL SDV 1mL IVP (17:02)
[2021-06-14] MEDS: ketorolac 30 mg/mL INJ IVP ×2 (17:03→23:48)
[2021-06-14] MEDS: ondansetron 2 mg/ML SDV 2 mL 4 MG IVP (17:04)
[2021-06-14] MEDS: simethicone 80 mg Chew PO ×2 (18:59→23:48)
[2021-06-14] MEDS: docusate sodium 100 mg Capsule PO (18:59)
[2021-06-15] VITALS: BP 100/56; PULSE 91; RESP 16; TEMP 37.1; O2SAT 98
[2021-06-15 02:07] VITALS: RESP 15
[2021-06-15] MEDS: HYDROmorphone 1 mg/mL INJ 1 mL 1.5 MG IVP (02:07)
[2021-06-15] MEDS: diphenhydrAMINE 50 mg/mL SDV 1mL IVP (05:15)
[2021-06-15 05:30] VITALS: BP 105/68; PULSE 70; O2SAT 99
[2021-06-15 05:36] LABS: Hematocrit 28.7 % (37.0-47.0); Hemoglobin 9.6 g/dL (11.5-15.3); Mean Corpuscular HGB Conc 33.4 g/dL (30.0-36.0); Mean Corpuscular Hemoglobin 30.4 pg (28.0-34.0); Mean Corpuscular Volume 90.8 fl (81-99); Mean Platelet Volume 9.6 fL (7.4-10.4); Platelet Count 274 10^3/cmm (130-400); Red Blood Count 3.16 10^6/uL (4.1-5.3); Red Cell Distribution Width 13.2 % (12.1-15.1); White Blood Count 10.4 10^3/uL (4.0-10.0)
[2021-06-15] MEDS: ketorolac 30 mg/mL INJ IVP (05:51)
[2021-06-15 06:01] LABS: Anion Gap 11.5 (5-19); Blood Urea Nitrogen 6 mg/dL (6-20); Calcium 7.7 mg/dL (8.5-10.5); Carbon Dioxide 22 mmol/L (22-29); Chloride 99 mmol/L (98-107); Glomerular Filtration Rate 68.3 mL/min (90-130); Glucose 117 mg/dL (65-115); Osmolality Calculated 267 mOsm/kg (285-295); Potassium 3.5 mmol/L (3.5-5.1); Sodium 129 mmol/L (136-145)
--- NOTE | 2021-06-15 06:48 | PC.NURSE ---
Orders recieved to pull packing per Dr. Murillo. Packing pulled by this nurse @ [id number]
[2021-06-15] MEDS: docusate sodium 100 mg Capsule PO (09:05)
[2021-06-15] MEDS: simethicone 80 mg Chew PO (09:05)
--- NOTE | 2021-06-15 09:56 | PM.DCS ---
Discharge Providers Date of Admission: 06/14/21 12:32 Date of Discharge: June 15, 2021 Attending Provider at Admission: Alia Murillo MD Attending Provider at Discharge: Alia Murillo MD Primary Care Provider: Hernán Bah DO Diagnoses at Discharge Discharge Diagnosis (1) Loss of perineal body, female: Status: Acute (2) Uterine prolapse: Status: Acute (3) Adnexal mass: Status: Acute Reason for Visit Reason for Visit: uterine prolapse, right complex ovarian cyst Hospital Course Hospital Course The patient was admitted for surgery. Her preop diagnosis was complex right adnexal mass. The mass turned out to be her bowel. The plan was for me to remove the right ovary. The right ovary was normal and not involved with the mass. The right ovary was left in place. Her uterus and bilateral tubes were removed. She did well postoperatively. She was ready for discharge on day #1 Physical Exam Narrative: The patient has no concerns today Const: COMMON NORMALS: no acute distress, patient oriented x3, no limitations, healthy appearing, alert and well nourished GI: COMMON NORMALS: Normal to inspection, nondistended, normoactive bowel sounds present, Soft to palpation and non-tender PALPATION: Yes Soft to palpation Extremity: COMMON NORMALS: no calf tenderness Neuro: COMMON NORMALS: patient oriented x3 SENSORIUM/ORIENTATION: Yes alert Urinary Catheter Management: Bautista: Cath Placed During This Visit: yes, but has since been removed by the nurse Reason for Continuing Indwelling Catheter: Decision to DC Catheter Urinary Catheter Date of Insertion: 06/14/21 Urinary Catheter Time of Insertion: 07:40 Date Urinary Catheter Removed: 06/15/21 Time Urinary Catheter Discontinued: 05:57 Discharge Data Studies Completed and Pending Pending at discharge Category Date Time Status ES surgery / GI images Routine Exams 06/14/21 06:41 Taken Urine Culture Routine Lab 06/14/21 07:43 Results Pathology: Surgical [PTH] Routine Pth 06/14/21 12:12 Received Laboratory Results WBC 10.4 10^3/uL (4.0-10.0) H 06/15/21 05:15 RBC 3.16 10^6/uL (4.1-5.3) L 06/15/21 05:15 Hgb 9.6 g/dL (11.5-15.3) L 06/15/21 05:15 Hct 28.7 % (37.0-47.0) L 06/15/21 05:15 MCV 90.8 fl (81-99) 06/15/21 05:15 MCH 30.4 pg (28.0-34.0) 06/15/21 05:15 MCHC 33.4 g/dL (30.0-36.0) 06/15/21 05:15 RDW 13.2 % (12.1-15.1) 06/15/21 05:15 Plt Count 274 10^3/cmm (130-400) 06/15/21 05:15 MPV 9.6 fL (7.4-10.4) 06/15/21 05:15 Neut % (Auto) 54.7 % 06/14/21 06:52 Lymph % (Auto) 28.3 % 06/14/21 06:52 [place] % (Auto) 13.3 % 06/14/21 06:52 Eos % (Auto) 2.3 % 06/14/21 06:52 Baso % (Auto) 0.9 % 06/14/21 06:52 Neut # (Auto) 2.34 10^3/uL (1.8-7.7) 06/14/21 06:52 Lymph # (Auto) 1.2 10^3/uL (0.8-4.8) 06/14/21 06:52 [place] # (Auto) 0.6 10^3/uL (0.2-0.9) 06/14/21 06:52 Eos # (Auto) 0.1 10^3/uL (0.0-0.8) 06/14/21 06:52 Baso # (Auto) 0.0 10^3/uL (0.0-0.1) 06/14/21 06:52 Nucleated RBC % (auto) 0 % 06/14/21 06:52 Nucleated RBCs # 0.0 /100WBC 06/14/21 06:52 Sodium 129 mmol/L (136-145) L 06/15/21 05:15 Potassium 3.5 mmol/L (3.5-5.1) 06/15/21 05:15 Chloride 99 mmol/L (98-107) 06/15/21 05:15 Carbon Dioxide 22 mmol/L (22-29) 05/11/22 05:15 Anion Gap 11.5 (5-19) 06/15/21 05:15 BUN 6 mg/dL (6-20) 06/15/21 05:15 Creatinine 0.9 mg/dL (0.5-0.9) 06/15/21 05:15 GFR Calculation 68.3 mL/min (90-130) L 06/15/21 05:15 Glucose 117 mg/dL (65-115) H 06/15/21 05:15 Calculated Osmolality 267 mOsm/kg (285-295) L 06/15/21 05:15 Calcium 7.7 mg/dL (8.5-10.5) L 06/15/21 05:15 Urine HCG, Qual Negative (Negative) 06/14/21 05:57 Vitals Last Vital Signs Temp 98.8 F 06/15/21 00:00 Pulse 70 06/15/21 05:30 Resp 15 06/15/21 02:07 BP 105/68 06/15/21 05:30 Pulse Ox 99 06/15/21 05:30 Discharge Plan Discharge Patient Disposition: Home Condition: Stable Prescriptions: New ibuprofen 800 mg Tablet 800 mg PO Q8H Qty: 40 0RF hydrocodone-acetaminophen 5-325 mg Tablet 1 tab PO Q4H PRN (Reason: Moderate To Severe Pain) Qty: 30 0RF docusate sodium 100 mg Capsule 100 mg PO BID Qty: 60 0RF Continued omeprazole 20 mg capsule,delayed release(DR/EC) 20 mg PO DAILY 0RF Zyrtec 10 mg capsule 10 mg PO DAILY PRN (Reason: Allergy Symptoms) 0RF diphenhydramine HCl [Benadryl] 25 mg capsule 25 mg PO .h.s PRN (Reason: sleep) 0RF Discharge Orders: Discharge Order (Routine); Ordered 06/15/21 Ordered By: Alia Murillo Referrals: Alia Murillo MD [Physician] - 06/20/21 10:45 am ( 1 week follow up with Dr Murillo on SundayJune 20 at 10:45am 6 week follow up with Dr Murillo on SundayJuly 25 at 10:30am ) Patient Instructions: Hydrocodone/Acetaminophen (By mouth), Ibuprofen (By mouth), Laxative, Stool Softeners (By mouth), Salpingectomy (GEN), Laparoscopic Hysterectomy (GEN), OB Discharge Report, OB Laproscopic Surgery - [facility], OB Food/Drug Interaction Guide, Opioid Safety Discharge Attestations Time Spent in Discharge Care*: less than 30 min Quality Metrics Clinical Quality Measures [ No reported AMI, CVA or VTE this stay] Coding Level of Care Code Acute Chg FW DC note Diagnoses Loss of perineal body, female N81.89 Uterine prolapse N81.4 Adnexal mass N94.89
[2021-06-15 11:30] VITALS: BP 112/69; PULSE 91; RESP 16; TEMP 37.2
[2021-06-15] MEDS: ibuprofen 800 mg tablet PO (11:30)
== END 2021-06-15 11:40 | disposition home or self-care (01) ==
LOC: OBGYN 12:33
PROVIDERS: Anesthesiology; Admitting Provider Obstetrics & Gynecology; PCP Family Medicine; Visit Provider Obstetrics & Gynecology
PROC: 0UT9FZZ Resection of Uterus, Via Natural or Artificial Opening With Percutaneous Endoscopic Assistance (ICD-10-PCS; CPT 58552; principal; 2021-06-14 07:00)
PROC: (CPT 58661; 2021-06-14 07:00)
DX: N81.4 Uterovaginal prolapse, unspecified (principal)
CPT/HCPCS: 58552; 36415; 80048; 81025; 84703; 85025; 85027; 87086; 88305; G0378; J0690; J1100; J1170; J1200; J1885; J1940; J2405; J2704; J3010; J3490; J7030